=== PATIENT | female | born 1980 | race Caucasian/White ===

== ENCOUNTER 2016-08-08 08:18 | Emergency (ER) | payer OTHER ==
[2016-08-08 08:36] VITALS: BP 134/97
--- NOTE | 2016-08-08 09:07 | ERNOTE ---
Integumentary HPI - Narrative Date of Service: 08/08/16 - General Presenting Symptoms: rash Time Seen by Provider: 08/08/16 08:59 Source: patient - Immun/Allergies/Home Medications Immunizations: IMMUNIZATION HX Immunizations Up to Date Yes History of Influenza Vaccine Yes Hx Pneumococcal Vaccination No Allergies/Adverse Reactions: Allergies Allergy/AdvReac Type Severity Reaction Status Date / Time amoxicillin [Amoxicillin] Allergy Intermediate Swelling Verified 08/08/16 08:30 of Throat acetaminophen AdvReac Mild Other Verified 08/08/16 08:30 Home Medications: HOME MEDICATIONS Acyclovir [Zovirax] 400 mg PO 5XD #35 tablet 08/08/16 [Last Taken Unknown] Clotrimazole/Betamethasone Dip [Lotrisone Cream] 1 film TP BID #15 cream..g. [Last Taken Unknown] Hydromorphone HCl [Dilaudid] 2 mg PO BID 08/08/16 [Last Taken Unknown] Naproxen [Naprosyn] 500 mg PO BID #60 tablet 08/08/16 [Last Taken Unknown] - History of Present Illness Date (Duration): 05/27/16 Location: Reports: scalp Quality: Reports: itching, painful Severity: moderate Exposure: Reports: no cause identified Associated Symptoms: Reports: blisters Review of Systems - Review of Systems Constitutional: Present: See HPI EYE: Present: no symptoms reported ENT: Present: no symptoms reported Respiratory: Present: no symptoms reported Cardiology: Present: no symptoms reported Gastrointestinal/Abdominal: Present: no symptoms reported Genitourinary: Present: no symptoms reported Musculoskeletal: Present: no symptoms reported Skin: Present: rash Neurological: Present: no symptoms reported Endocrine: Present: no symptoms reported Hematologic/Lymphatic: Present: no symptoms reported Psych: Present: no symptoms reported - Patient's Past Medical History Patient History - Medical: Other Patient History - Cardiac/Respiratory: No pertinent hx Patient History - Cancer: No Hx of Cancer Patient History - Surgical Procedures: , Tubal Ligation, T & A Patient History - Other: None LMP (females 10-50): other - Social History Living Situations: home Abuse History: No History of abuse Psych History: No pertinent hx Smoking Status: Current every day smoker Have you smoked in the past 12 months: Yes Do you dip or chew tobacco: No Patient requests Smoking Cessation Consult: No Initiate information on Smoking Cessation: No Alcohol Use: none Drug Use: none - Immunizations Immunizations Up to Date: Yes Hx Pneumococcal Vaccination: No History of Influenza Vaccine: Yes Physical Exam - Physical Exam General Appearance: Present: wd/wn, alert, moderate distress Eye Exam: Normal inspection: bilateral, PERRL: bilateral Ears, Nose, Throat: Present: normal ENT inspection, hearing grossly normal, normal pharynx Neck: Present: normal inspection, nontender Respiratory: Present: no respiratory distress, normal breath sounds, no accessory muscle use, chest nontender, lungs clear Cardiovascular/Chest: Present: regular rate, rhythm, no murmur, normal peripheral pulses Gastrointestinal/Abdominal: Present: normal bowel sounds, nontender, nondistended, soft, no organomegaly Rectal Exam: Present: deferred Back Exam: Present: normal inspection, normal range of motion Extremity Exam: Present: normal inspection, non-tender, no edema, normal range of motion Neurological Exam: Present: alert, oriented, normal mood/affect Skin Exam: Present: normal color, other - vesicular rash that does not cross the midline on the right occipital region Lymphatic Exam: Present: no adenopathy ED Progress - Vital Signs Patient's Vital Signs:: I have reviewed the patient's vital signs. Vital Signs: Vital Signs 08/08/16 08:30 Temperature 36.4 C L Pulse Rate 101 H Respiratory 12 Rate Blood Pressure 134/97 O2 Sat by Pulse 98 Oximetry - Progress/Reassessment Chief Complaint: Rash Progress:: Unchanged - Transfer of Care Expected Disposition: Discharge Departure Clinical Impression: Shingles rash Qualifiers: Herpes zoster complications: without complications Qualified Code(s): B02.9 - Zoster without complications - Departure Disposition: Home self-care Condition: Good Instructions: Occipital Neuralgia, Shingles, [id number] Referrals: Donovan Chavarria MD [Primary Care Provider] - Prescriptions: Acyclovir [Zovirax] 400 mg PO 5XD #35 tablet Clotrimazole/Betamethasone Dip [Lotrisone Cream] 1 film TP BID #15 cream..g. Naproxen [Naprosyn] 500 mg PO BID #60 tablet
--- OUTSIDE RECORDS SUMMARY | 2016-08-08 09:13 | XMS REPORT | Continuity of Care Document ---
:1980 Author Organization [facility] Address Unavailable [id number] Care Team Providers Name Role Phone Unavailable Primary Care Provider Unavailable Source Comments This disclosure is being made pursuant to the [employer] program and maynot contain all information available regarding this patient.[facility] Active Allergies and Adverse Reactions Not on File Current Medications Be aware that medications may not be up to date as of this document. Alwaysverify current medications with the patient. Not on file Active Problems Not on file Social History Tobacco Use Types Packs/Day Years Used Date Never Assessed Plan of Care Health Maintenance Due Date Last Done Comments Retired-Pertussis Vaccine Adult 02/25/1999 Retired-Tetanus Vaccine Adult 02/25/1999 Pap Smear 02/25/2001 Retired-INFLUENZA VACCINE 02/11/2015 Results from Last 3 Months Not on file
--- OUTSIDE RECORDS SUMMARY | 2016-08-08 09:13 | XMS REPORT | Continuity of Care Document ---
:1980 Author Organization [facility] ([facility]) Address [place] [place] [address] Phone [phone] Care Team Providers Name Role Phone Maggie Richey Primary Care Provider [phone] Source Comments This disclosure is being made pursuant to the Care Everywhere program, applicable federal and state laws, and may not contain all informaitonavailable regarding this patient.[facility] ([facility]) Active Allergies and Adverse Reactions No Known Allergies Current Medications Prescription Sig. Disp. Refills Start Date End Date Status HYDROmorphone inject 0.1 mg Active (DILAUDID) 2 mg/mL intravenously every 1 injection hour as needed. predniSONE 5 mg tablet See notes below 21 Tab 0 07/10/2012 Active Indications: pain Active Problems Problem Noted Date Hydronephrosis 04/07/2012 Right knee pain 01/06/2012 Mood disorder 01/06/2012 Hepatitis C antibody test positive 01/30/2011 Resolved Problems Problem Noted Date Resolved Date 30 year old at ___ dated by LMP not consistent with 01/30/20112010 18 week scan History of x 1 for distress 01/30/2011 03/23/2011 Immunizations Name Dates Previously Given Next Due Hep A-Hep B (Twinrix) 07/10/2012,02/08/2012,01/06/2012 Influenza, PF 04/07/2012 MMR 02/05/2011 Tdap 02/05/2011 Social History Tobacco Use Types Packs/Day Years Used Date Current Every Day Smoker Cigarettes 1 14 Smokeless Tobacco: Never Used Tobacco Cessation:Ready to Quit: No; Counseling Given: Yes Comments: Alcohol Use Drinks/Week oz/Week Comments No Last Filed Vital Signs Vital Sign Reading Time Taken Blood Pressure 125/81 07/10/2012 11:51 AM 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 Pulse 98 07/10/2012 11:51 AM 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 Temperature 36.8 C (98.2 F) 07/10/2012 11:51 AM 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 Respiratory Rate 18 02/07/2011 8:15 AM CDT Height 1.676 m (5' 6") 07/10/2012 11:51 AM 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 Weight 67.677 kg (149 lb 3.2 oz) 07/10/2012 11:51 AM 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 Body Mass Index 24.09 07/10/2012 11:51 AM 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 Oxygen Saturation 100% 02/04/2011 5:25 PM CDT Plan of Care Patient Goal Type Goal Weight Weight below 59 kg (131 lb) Health Maintenance Due Date Last Done Comments Lipid Disorder Screening 02/25/1998 Pneumococcal Vaccine (1 of 1 - 02/25/1999 PPSV23) Cervical Cancer Screening 02/25/2010 Varicella Vaccine (1 of 2 - Adult - 03/05/2011 No Evidence of Immunity) Influenza Vaccine: Seasonal (#1) 01/12/2016 04/07/2012 Td Vaccine 02/05/2021 02/05/2011 MMR Vaccine Completed 02/05/2011 Tdap Vaccine Completed 02/05/2011 Hepatitis B Vaccine Completed 07/10/2012, 02/08/2012, 01/06/2012 Results from Last 3 Months Not on file
== END 2016-08-08 09:05 | disposition home or self-care (01) ==
LOC: ER 08:18
DX: B02.9 Zoster without complications (principal); F17.210 Nicotine dependence, cigarettes, uncomplicated

== ENCOUNTER 2016-09-09 17:00 | Emergency (ER) | payer OTHER ==
[2016-09-09 17:16] VITALS: BP 134/71
--- OUTSIDE RECORDS SUMMARY | 2016-09-09 17:40 | XMS REPORT | Continuity of Care Document ---
:1980 Author Organization [facility] [place] [address] Care Team Providers Name Role Phone Unavailable Primary Care Provider Unavailable Source Comments This disclosure is being made pursuant to the [employer] program and maynot contain all information available regarding this patient.[facility] Active Allergies and Adverse Reactions Not on [...]
--- OUTSIDE RECORDS SUMMARY | 2016-09-09 17:40 | XMS REPORT | Continuity of Care Document ---
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
[2016-09-09] MEDS ORDERED: IBUPROFEN 400 MG TABLET PO ONE (18:02)
--- NOTE | 2016-09-09 18:11 | ERNOTE ---
Lower Extremity HPI - Narrative Date of Service: 09/09/16 - General Lower Extremities Pain: leg: bilateral Time Seen by Provider: 09/09/16 17:13 Source: patient Exam Limitations: no limitations - Immun/Allergies/Home Medications Immunizations: IMMUNIZATION HX Immunizations Up to Date Yes History of Influenza Vaccine Yes Hx Pneumococcal Vaccination No Allergies/Adverse Reactions: Allergies Allergy/AdvReac Type Severity Reaction Status Date / Time amoxicillin [Amoxicillin] Allergy Intermediate Swelling Verified 09/09/16 17:16 of Throat acetaminophen AdvReac Mild Other Verified 09/09/16 17:16 Home Medications: HOME MEDICATIONS Ibuprofen [Motrin] 800 mg PO TID PRN #60 tab 09/09/16 [Last Taken Unknown] - History of Present Illness Narrative: Pt. comes in with c/o lower leg pain that she has had for over ten years. Pt. states that she just moved back here from [place] and her PCP refused to refill her pain medications as she does not want to try any alternatives or physical therapy. Pt. states that her PCP may be sending her prescription but it may take a while so she is here for 2mg Dilaudid refill. Pt. denies any change in her pain and states taht she has an appointment with Dr Nadeem Murray in november. Review of Systems - Review of Systems Constitutional: Present: no symptoms reported. Absent: recent illness, fever, chills, weakness, fatigue, malaise EYE: Present: no symptoms reported ENT: Present: no symptoms reported Respiratory: Present: no symptoms reported. Absent: shortness of breath, cough , wheezing Cardiology: Present: no symptoms reported. Absent: chest pain, palpitations, edema Gastrointestinal/Abdominal: Present: no symptoms reported. Absent: nausea, vomiting, diarrhea Genitourinary: Present: no symptoms reported Musculoskeletal: Present: muscle pain - B lower leg from calf to toes chronic Skin: Present: no symptoms reported Neurological: Present: no symptoms reported. Absent: headache, dizziness/light- headedness, numbness, tingling All Other Systems: All systems neg except as marked - Patient's Past Medical History Patient History - Medical: No pertinent hx Patient History - Cardiac/Respiratory: No pertinent hx Patient History - Cancer: No Hx of Cancer Patient History - Surgical Procedures: , Tubal Ligation, T & A Patient History - Other: None LMP (Calendar): 08/19/16 - Social History Living Situations: parents Abuse History: No History of abuse Psych History: No pertinent hx Alcohol Use: none Drug Use: none - Immunizations Immunizations Up to Date: Yes Hx Pneumococcal Vaccination: No History of Influenza Vaccine: Yes Physical Exam - Physical Exam General Appearance: Present: wd/wn, alert, no apparent distress Eye Exam: Normal inspection: bilateral, PERRL: bilateral, EOMI: bilateral Ears, Nose, Throat: Present: normal ENT inspection, normal pharynx Neck: Present: normal inspection, nontender. Absent: lymphadenopathy (R), lymphadenopathy (L) Respiratory: Present: no respiratory distress, normal breath sounds, no accessory muscle use, chest nontender, lungs clear Cardiovascular/Chest: Present: regular rate, rhythm, no murmur, normal peripheral pulses Gastrointestinal/Abdominal: Present: normal bowel sounds, nontender, nondistended, soft, no organomegaly Back Exam: Present: normal inspection, normal range of motion, no CVA tenderness , no vertebral tenderness Extremity Exam: Present: normal range of motion, no edema, other - burning tenderness throughout B legs from hips to toes reported by pt. Neurological Exam: Present: alert, oriented, normal mood/affect, no motor/ sensory deficits Skin Exam: Present: normal color, warm/dry. Absent: pallor, skin rash ED Progress - Date and Time Seen: Date and Time: 09/09/16 18:01 As pt. pain is chronic it would not be appropriate for me to prescribe narcotics for the out of the ER. Discussed options with pt. and she would like to try Ibuprofen for the pain. 09/09/16 18:09 Do not feel that dilaudid is appropriate for pt. pain as it seems more neurological and she could use gabapentin or lyrica for pain but does not want to try something else. - Vital Signs Patient's Vital Signs:: I have reviewed the patient's vital signs. Vital Signs: Vital Signs 09/09/16 17:09 Temperature 37.3 C Pulse Rate 107 H Respiratory 12 Rate Blood Pressure 134/71 O2 Sat by Pulse 95 Oximetry - Progress/Reassessment Chief Complaint: Lower Extremity Pain/ Injury Departure Clinical Impression: Chronic lower limb pain Qualifiers: Laterality: bilateral Qualified Code(s): M79.604 - Pain in right leg; M79.605 - Pain in left leg; G89.29 - Other chronic pain - Departure Disposition: Home self-care Condition: Good Instructions: Chronic Pain Additional Instructions: Please follow up with primary provider as planned for further treatment. Referrals: Donovan Chavarria MD [Primary Care Provider] - Prescriptions: Ibuprofen [Motrin] 800 mg PO TID PRN #60 tab PRN Reason: Pain
[2016-09-09] MEDS ORDERED: IBUPROFEN 400 MG TABLET ONE (18:13)
== END 2016-09-09 18:41 | disposition home or self-care (01) ==
LOC: ER 17:00
DX: M79.604 Pain in right leg (principal); M79.605 Pain in left leg; G89.29 Other chronic pain

== ENCOUNTER 2016-10-28 05:12 | Emergency (ER) | payer SELFPAY ==
[2016-10-28 05:25] VITALS: BP 129/86
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
--- OUTSIDE RECORDS SUMMARY | 2016-10-28 05:59 | XMS REPORT | Continuity of Care Document ---
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
== END 2016-10-28 06:09 | disposition left against medical advice (07) ==
LOC: ER 05:12
DX: S66.811A Strain of other specified muscles, fascia and tendons at wrist and hand level, right hand, initial encounter (principal); L03.011 Cellulitis of right finger; V89.2XXA Person injured in unspecified motor-vehicle accident, traffic, initial encounter; Y93.9 Activity, unspecified; Y92.410 Unspecified street and highway as the place of occurrence of the external cause; Z72.0 Tobacco use; Z53.29 Procedure and treatment not carried out because of patient's decision for other reasons

== ENCOUNTER 2017-03-19 09:15 | Emergency (ER) | payer OTHER ==
[2017-03-19] MEDS ORDERED: IBUPROFEN 400 MG TABLET PO ONE (11:48)
--- NOTE | 2017-03-19 12:05 | ERNOTE ---
Lower Extremity HPI - Narrative Date of Service: 03/19/17 - General Lower Extremities Pain: knee: right Time Seen by Provider: 03/19/17 11:40 Source: patient Exam Limitations: no limitations - Immun/Allergies/Home Medications Immunizations: IMMUNIZATION HX Immunizations Up to Date No History of Influenza Vaccine No Hx Pneumococcal Vaccination No Allergies/Adverse Reactions: Allergies Allergy/AdvReac Type Severity Reaction Status Date / Time amoxicillin [Amoxicillin] Allergy Intermediate Swelling Verified 03/19/17 09:55 of Throat acetaminophen AdvReac Mild Other Verified 03/19/17 09:55 Home Medications: HOME MEDICATIONS oxyCODONE HCL [Oxycodone] 5 mg PO Q6H PRN #14 tab 03/19/17 [Last Taken Unknown] - History of Present Illness Narrative: 37 yo WF who lost control of skate board this morning and jumped off. [place] immediate pop in her right knee with pain. Was unable to weight bear, felt unstable, and could not straighten it. Came immediately to ED. Occurred: just prior to arrival Location of Incident: [place] Review of Systems - Review of Systems Constitutional: Present: no symptoms reported ENT: Present: no symptoms reported Respiratory: Present: no symptoms reported Cardiology: Present: no symptoms reported Gastrointestinal/Abdominal: Present: no symptoms reported - Patient's Past Medical History Patient History - Medical: Liver Disease Patient History - Cardiac/Respiratory: No pertinent hx Patient History - Cancer: No Hx of Cancer Patient History - Surgical Procedures: , Tubal Ligation, T & A Patient History - Other: None - Family History Mother Family History - Medical: Diabetes Type 2 Father Family History - Medical: History Unknown - Social History Living Situations: home Abuse History: No History of abuse Psych History: No pertinent hx Smoking Status: Current every day smoker Have you smoked in the past 12 months: - 20 - Immunizations Immunizations Up to Date: No Hx Pneumococcal Vaccination: No History of Influenza Vaccine: No Physical Exam - Physical Exam General Appearance: Present: wd/wn, alert, other - painful Head Exam: Present: normal inspection Ears, Nose, Throat: Present: normal ENT inspection Neck: Present: normal inspection, nontender Respiratory: Present: no respiratory distress Cardiovascular/Chest: Present: regular rate, rhythm Extremity Exam: Present: other - Right knee with minimal swelling, medial/ lateral joint tenderness, no effusion. Limited flexion due to pain Neurological Exam: Present: alert, oriented ED Progress - Vital Signs Patient's Vital Signs:: I have reviewed the patient's vital signs. Vital Signs: Vital Signs 03/19/17 09:50 Temperature 36.9 C Pulse Rate 95 Respiratory 14 Rate Blood Pressure 134/78 O2 Sat by Pulse 98 Oximetry - X-Ray X-Ray #1 X-Ray: knee Interpretation: Reviewed by me - Progress/Reassessment Chief Complaint: Lower Extremity Pain/ Injury Plan - Plan Plan: Cannot take tylenol due to hep C Use oxycodone alternating with ibuprofen every 3 hours Elevation Knee immoblizer Follow up with PCP or ortho Departure Clinical Impression: Strain of right knee - Departure Disposition: Home self-care Condition: Good Instructions: Knee Pain, [id number] Referrals: Donovan Chavarria MD [Primary Care Provider] - Prescriptions: oxyCODONE HCL [Oxycodone] 5 mg PO Q6H PRN #14 tab PRN Reason: Severe Pain
[2017-03-19 12:11] VITALS: BP 119/87
[2017-03-19] MEDS ORDERED: IBUPROFEN 400 MG TABLET ONE (12:13)
== END 2017-03-19 12:20 | disposition home or self-care (01) ==
LOC: ER 09:15
PROC: 2W3LX1Z Immobilization of Right Lower Extremity using Splint (ICD-10-PCS; principal; 2017-03-19)
DX: S83.91XA Sprain of unspecified site of right knee, initial encounter (principal); Y93.51 Activity, roller skating (inline) and skateboarding; Y92.830 Public park as the place of occurrence of the external cause; Y99.8 Other external cause status

== ENCOUNTER 2017-03-20 10:49 | Emergency (ER) | payer OTHER ==
[2017-03-20] MEDS ORDERED: KETOROLAC TROMETHAMINE 60 MG/2 ML VIAL IM ONE ×2 (11:26)
--- NOTE | 2017-03-20 11:28 | ERNOTE ---
Lower Extremity HPI - Narrative Date of Service: 03/20/17 - General Lower Extremities Pain: leg: right Time Seen by Provider: 03/20/17 11:18 Source: patient Exam Limitations: other - patient with known history of drug use and seeking - Immun/Allergies/Home Medications Immunizations: IMMUNIZATION HX Immunizations Up to Date Yes History of Influenza Vaccine No Hx Pneumococcal Vaccination No Allergies/Adverse Reactions: Allergies Allergy/AdvReac Type Severity Reaction Status Date / Time amoxicillin [Amoxicillin] Allergy Intermediate Swelling Verified 03/20/17 10:58 of Throat acetaminophen AdvReac Mild Other Verified 03/20/17 10:58 Home Medications: HOME MEDICATIONS oxyCODONE HCL [Oxycodone] 5 mg PO Q6H PRN #14 tab 03/19/17 [Last Taken 03/20/17] - History of Present Illness Narrative: Seen yesterday for skate board accident in which she came down on her right leg. Had knee pain. Xray showed no bony deformity. Sent home on ibuprofen alternating with oxycodone every 3 hours. She says she has been taking it on a regular bases but was not able to repeat the alternating schedule. She is requesting dilaudid as the only medicine that works for her pain. I explained that the only medicine that would completely relieve her pain was general anesthesia. I suggested we increase her oxycodone to 10 mg and give IM toradol. She accepted that proposal. Review of Systems - Review of Systems Constitutional: Present: no symptoms reported ENT: Present: no symptoms reported Respiratory: Present: no symptoms reported Cardiology: Present: no symptoms reported Musculoskeletal: Present: other - Now has discomfort at the coccyx Neurological: Present: no symptoms reported - Patient's Past Medical History Patient History - Medical: Liver Disease Patient History - Cardiac/Respiratory: No pertinent hx Patient History - Cancer: No Hx of Cancer Patient History - Surgical Procedures: , Tubal Ligation, T & A Patient History - Other: None - Family History Mother Family History - Medical: Diabetes Type 2 Father Family History - Medical: History Unknown - Social History Abuse History: No History of abuse Psych History: No pertinent hx Smoking Status: Current every day smoker - Immunizations Immunizations Up to Date: Yes Hx Pneumococcal Vaccination: No History of Influenza Vaccine: No Physical Exam - Physical Exam General Appearance: Present: wd/wn, alert, irritable, crying Head Exam: Present: normal inspection Eye Exam: Normal inspection: bilateral Neck: Present: normal inspection Respiratory: Present: no respiratory distress Cardiovascular/Chest: Present: regular rate, rhythm Extremity Exam: Present: other - No change from 03/19. Some slight swelling and medial soft tissue tenderness at joint and slightly superior. ED Progress - Vital Signs Patient's Vital Signs:: I have reviewed the patient's vital signs. Vital Signs: Vital Signs 03/20/17 10:58 Temperature 36.6 C Pulse Rate 87 Respiratory 20 Rate Blood Pressure 114/76 O2 Sat by Pulse 98 Oximetry - Progress/Reassessment Chief Complaint: Lower Extremity Pain/ Injury Progress Note-Subjective: 03/20/17 12:57 Sitting comfortably in wheelchair. Plan - Plan Plan: Continue previous plan Increase oxycodone to 10 mg Follow up with PCP Departure Clinical Impression: Strain of knee and leg, right - Departure Disposition: Home self-care Condition: Fair Instructions: Muscle Strain, [id number] Additional Instructions: Increase oxycodone to 10 mg Continue present recommendations Follow up with PCP
[2017-03-20] MEDS ORDERED: PROMETHAZINE HCL 25 MG/ML AMPUL IM ONE (12:01)
[2017-03-20] MEDS ORDERED: PROMETHAZINE HCL 25 MG/ML AMPUL ONE (12:03)
[2017-03-20 13:16] VITALS: BP 122/70
== END 2017-03-20 13:08 | disposition home or self-care (01) ==
LOC: ER 10:49
DX: S86.911A Strain of unspecified muscle(s) and tendon(s) at lower leg level, right leg, initial encounter (principal); V00.138A Other skateboard accident, initial encounter; Y93.51 Activity, roller skating (inline) and skateboarding; F17.200 Nicotine dependence, unspecified, uncomplicated

== ENCOUNTER 2017-05-06 17:26 | Emergency (ER) | payer OTHER ==
--- NOTE | 2017-05-06 19:28 | ERNOTE ---
Upper Extremity HPI - Narrative Date of Service: 05/06/17 - General Extremities Pain Location: hand: left Time Seen by Provider: 05/06/17 19:20 Source: patient Exam Limitations: no limitations - Immun/Allergies/Home Medications Immunizations: IMMUNIZATION HX Immunizations Up to Date Yes History of Influenza Vaccine No Hx Pneumococcal Vaccination No Allergies/Adverse Reactions: Allergies Allergy/AdvReac Type Severity Reaction Status Date / Time amoxicillin [Amoxicillin] Allergy Intermediate Swelling Verified 05/06/17 18:10 of Throat acetaminophen AdvReac Mild Other Verified 05/06/17 18:10 Home Medications: HOME MEDICATIONS Sulfamethoxazole/Trimethoprim [Bactrim Ds] 1 tab PO BID #28 tab 05/06/17 [Last Taken Unknown] Sulindac 200 mg PO BID 05/06/17 [Last Taken Unknown] traMADol HCL [Tramadol HCl] 50 mg PO TID PRN #10 tablet 05/06/17 [Last Taken Unknown] - History of Present Illness Narrative: Pt. comes in with c/o L hand abscess for 24 hours. Pt. denies any SOB, CP, NVD , fever, recent illness or injury. Pt. states that she thought that it was a spider bit but when it got bigger she though that there was fluid underneath so she tried to rip it with a needle and was unsuccessful. Occurred: this morning Severity: moderate Method of Injury: Reports: unknown - insect bite Modifying Factors - (Improves): Reports: other - denies Modifying Factors - (Worsens): Reports: movement Other Injuries: Reports: none Prior Treament: Reports: similar symptoms before. Denies: recently seen, treated by physician, recently hospitalized, currently on antibiotics Review of Systems - Review of Systems Constitutional: Present: no symptoms reported. Absent: recent illness, fever, chills, weakness, fatigue, malaise EYE: Present: no symptoms reported ENT: Present: no symptoms reported Respiratory: Present: no symptoms reported. Absent: shortness of breath, cough , wheezing Cardiology: Present: no symptoms reported. Absent: chest pain, palpitations, edema Gastrointestinal/Abdominal: Present: no symptoms reported Genitourinary: Present: no symptoms reported Musculoskeletal: Present: no symptoms reported. Absent: back pain, joint pain Skin: Present: lumps - L hand 2cm . Absent: rash Neurological: Present: no symptoms reported. Absent: headache, dizziness/light- headedness, numbness, tingling All Other Systems: All systems neg except as marked - Patient's Past Medical History Patient History - Medical: Liver Disease Patient History - Cardiac/Respiratory: No pertinent hx Patient History - Cancer: No Hx of Cancer Patient History - Surgical Procedures: , Tubal Ligation, T & A Patient History - Other: None LMP (females 10-50): 3 weeks - Family History Mother Family History - Medical: Diabetes Type 2 Father Family History - Medical: History Unknown - Social History Living Situations: home Abuse History: No History of abuse Psych History: Hx of Anxiety Smoking Status: Current every day smoker Alcohol Use: rarely Drug Use: none - Immunizations Immunizations Up to Date: Yes Hx Pneumococcal Vaccination: No History of Influenza Vaccine: No Physical Exam - Physical Exam General Appearance: Present: wd/wn, alert, no apparent distress Head Exam: Present: normal inspection, no evidence of injury Eye Exam: Normal inspection: bilateral Neck: Present: normal inspection, nontender, supple, full range of motion. Absent: lymphadenopathy (R), lymphadenopathy (L) Respiratory: Present: no respiratory distress, normal breath sounds, no accessory muscle use, chest nontender, lungs clear Cardiovascular/Chest: Present: regular rate, rhythm, no murmur, normal peripheral pulses Extremity Exam: Present: other - L hand 3cm abscess with ballotable fluids. Absent: bony tenderness Neurological Exam: Present: alert, oriented, normal mood/affect, no motor/ sensory deficits, supervisor [place] II-XII nml as tested, normal cerebellar test Skin Exam: Present: normal color, warm/dry, other - see above ED Progress - Vital Signs Patient's Vital Signs:: I have reviewed the patient's vital signs. Vital Signs: Vital Signs 05/06/17 18:02 Temperature 36.4 C L Pulse Rate 92 Respiratory 18 Rate Blood Pressure 138/72 O2 Sat by Pulse 97 Oximetry - Progress/Reassessment Chief Complaint: Hand Injury/Pain Procedures Left Dorsal Hand Anesthesia: 1% Lidocaine I & D Prep: betadine prep Blade Size: 15 Findings and Actions: purulent drainage large, probed/breakup loculation, packed with guaze, cultures obtained Estimated blood loss (ml): 10 Complications: Pt darron procedure well Departure Clinical Impression: Abscess - Departure Disposition: Home self-care Condition: Good Instructions: Abscess, [id number] Additional Instructions: Please follow up with primary provider in 1-2 days. Please remove dressing in 24 hours. Referrals: Donovan Chavarria MD [Primary Care Provider] - Prescriptions: Sulfamethoxazole/Trimethoprim [Bactrim Ds] 1 tab PO BID #28 tab traMADol HCL [Tramadol HCl] 50 mg PO TID PRN #10 tablet PRN Reason: Pain
[2017-05-06] MEDS ORDERED: SULFAMETHOXAZOLE/TRIMETHOPRIM 1 TAB TABLET ONE (20:24)
[2017-05-06] MEDS ORDERED: traMADol HCL 50 MG TABLET ONE (20:25)
[2017-05-06] MEDS ORDERED: SULFAMETHOXAZOLE/TRIMETHOPRIM 1 TAB TABLET PO ONE (20:26)
[2017-05-06] MEDS ORDERED: traMADol HCL 50 MG TABLET PO ONE (20:26)
[2017-05-06 22:00] VITALS: BP 131/70
== END 2017-05-06 20:30 | disposition home or self-care (01) ==
LOC: ER 17:26
PROC: 0H9GXZZ Drainage of Left Hand Skin, External Approach (ICD-10-PCS; principal; 2017-05-06)
DX: L02.512 Cutaneous abscess of left hand (principal)